=== PATIENT | female | born 1990 | race Caucasian/White ===

== ENCOUNTER → 2017-05-27 | Outpatient (CLI) | payer OTHER ==
[2017-05-27 12:44] LABS: BASOPHIL % 0.4 % (0-2); PLATELET COUNT 291 x10^3mcL (130-400); RED CELL DISTRIBUTION WIDTH 12.7 % (11.5-14.5)
[2017-05-27 12:50] LABS: UA SPECIFIC GRAVITY 1.025 (1.005-1.035); microscopic required? YES; urine erythrocyte 2+ (NEGATIVE)
[2017-05-29 09:18] LABS: MUMPS AB IGG <9.0 AU/mL (Immune >10.9); RUBEOLA AB IGG <25.0 AU/mL (Immune >29.9)
== END | disposition home or self-care (01) ==
LOC: LB 12:22
PROVIDERS: Family Medicine
DX: Z00.00 Encounter for general adult medical examination without abnormal findings (principal)
CPT/HCPCS: 86787

== ENCOUNTER → 2017-06-28 | Outpatient (CLI) | payer OTHER | END | disposition home or self-care (01) | LOC: LB 11:02 | DX: Z02.0 Encounter for examination for admission to educational institution (principal) ==